=== PATIENT | female | born 1960 | race Hispanic/Latino ===

== ENCOUNTER 2022-04-06 15:53 | Inpatient (IN) | payer BC ==
[~2022-04-06] VITALS: Ht 157.5 cm; Wt 77.1 kg
[2022-04-06] MEDS ORDERED: GABA300S PO (20:02)
[2022-04-06] MEDS ORDERED: DOCU100C33 PO (20:02)
[2022-04-06] MEDS ORDERED: DULO60CA64 PO (20:02)
[2022-04-06 20:17] VITALS: BP 92/54
[2022-04-06] MEDS ORDERED: ACETAMINOPHEN 325 MG TAB PO PRN (20:30)
[2022-04-06] MEDS ORDERED: LACTULOSE 20 GM/30 ML UDCUP PO PRN (20:30)
[2022-04-06] MEDS ORDERED: ONDANSETRON 4MG INJ IV PRN (20:30)
[2022-04-06] MEDS: GABAPENTIN 300 MG CAPSULE PO SCH (21:00)
[2022-04-06] MEDS: DOCUSATE SODIUM 100 MG CAP PO SCH (21:00)
[2022-04-06] MEDS: DULOXETINE HCL 30 MG CAP PO SCH (21:00)
[2022-04-06] MEDS: ZOSYN 3.375GM+NS 50ML 50 ML IV SCH (22:54)
[2022-04-06] MEDS: FAMOTIDINE 20MG TAB PO SCH (22:54)
[2022-04-07] VITALS (7 sets, daily range): BP systolic 90–119; BP diastolic 47–66
[2022-04-07] MEDS: ZOSYN 3.375GM+NS 50ML 50 ML IV SCH ×3 (05:28→20:26)
[2022-04-07 05:33] LABS: BASOPHILS % (AUTO) 0.5 % (0.0-5.0); EOSINOPHILS % (AUTO) 4.8 % (0.0-8.0); HEMATOCRIT 27.3 % (36-48); LYMPHOCYTES % (AUTO) 7.6 % (21.0-51.0); MEAN CORPUSCULAR HEMOGLOBIN 29.2 pg (27.0-33.0); MEAN CORPUSCULAR HGB CONC 32.6 g/dL (32.0-36.0); MEAN CORPUSCULAR VOLUME 89.5 fL (79-99); MONOCYTES % (AUTO) 7.5 % (3.0-13.0); NEUTROPHILS % (AUTO) 71.1 % (40.0-77.0); PLATELET COUNT (AUTO) 220 K/uL (130-400); RED BLOOD CELL COUNT(AUTO) 3.05 MIL/uL (4.00-5.50); RED CELL DISTRIBUTION WIDTH 16.8 % (11.0-15.5); WHITE BLOOD COUNT (AUTO) 12.6 K/uL (4.8-10.8)
[2022-04-07 05:57] LABS: ALBUMIN 1.3 g/dL (3.5-5.0); CREATININE 1.5 mg/dL (0.5-1.5); POTASSIUM 3.4 mmol/L (3.5-5.1); TOTAL PROTEIN, SERUM 5.9 g/dL (6.0-8.3)
[2022-04-07] MEDS: DULOXETINE HCL 30 MG CAP PO SCH ×2 (08:43→20:26)
[2022-04-07] MEDS: DOCUSATE SODIUM 100 MG CAP PO SCH ×2 (08:43→20:26)
[2022-04-07] MEDS: FAMOTIDINE 20MG TAB PO SCH ×2 (08:43→20:26)
[2022-04-07] MEDS: GABAPENTIN 300 MG CAPSULE PO SCH ×3 (08:43→20:26)
[2022-04-07] MEDS ORDERED: VANCOMYCIN PROTOCOL PER PHARMACY IV SCH (11:00)
[2022-04-07] MEDS: 0.9%NACL 1000ML 1,000 ML IV SCH ×2 (13:29→21:40)
[2022-04-07] MEDS ORDERED: PHARMACY COMMUNICATION MISC SCH (14:00)
[2022-04-07] MEDS: ACETAMINOPHEN 325 MG TAB PO PRN (17:23)
[2022-04-07] MEDS: BALSAM PERU/CASTOR OIL 60 GM TUBE TP SCH (20:56)
[2022-04-08] MEDS: ACETAMINOPHEN 325 MG TAB PO PRN (03:18)
[2022-04-08 03:59] VITALS: BP 122/61
[2022-04-08] MEDS: ZOSYN 3.375GM+NS 50ML 50 ML IV SCH ×3 (04:26→20:47)
[2022-04-08] MEDS: 0.9%NACL 1000ML 1,000 ML IV SCH ×2 (04:36→17:14)
[2022-04-08 06:27] LABS: BASOPHILS % (AUTO) 0.5 % (0.0-5.0); EOSINOPHILS % (AUTO) 4.2 % (0.0-8.0); HEMATOCRIT 26.9 % (36-48); MEAN CORPUSCULAR HEMOGLOBIN 28.7 pg (27.0-33.0); MEAN CORPUSCULAR HGB CONC 32.3 g/dL (32.0-36.0); MEAN CORPUSCULAR VOLUME 88.8 fL (79-99); MONOCYTES % (AUTO) 8.2 % (3.0-13.0); NEUTROPHILS % (AUTO) 61.3 % (40.0-77.0); PLATELET COUNT (AUTO) 251 K/uL (130-400); RED BLOOD CELL COUNT(AUTO) 3.03 MIL/uL (4.00-5.50); RED CELL DISTRIBUTION WIDTH 16.9 % (11.0-15.5); WHITE BLOOD COUNT (AUTO) 10.8 K/uL (4.8-10.8)
[2022-04-08 06:34] LABS: CREATININE 1.1 mg/dL (0.5-1.5); POTASSIUM 3.2 mmol/L (3.5-5.1)
[2022-04-08 07:28] VITALS: BP 107/51
[2022-04-08] MEDS: DOCUSATE SODIUM 100 MG CAP PO SCH ×2 (08:58→20:47)
[2022-04-08] MEDS: FAMOTIDINE 20MG TAB PO SCH ×2 (08:58→20:47)
[2022-04-08] MEDS: DULOXETINE HCL 30 MG CAP PO SCH ×2 (08:59→20:47)
[2022-04-08] MEDS: GABAPENTIN 300 MG CAPSULE PO SCH ×3 (08:59→20:47)
[2022-04-08] MEDS: BALSAM PERU/CASTOR OIL 60 GM TUBE TP SCH ×3 (09:04→20:52)
[2022-04-08 12:00] VITALS: BP 114/62
[2022-04-08] MEDS ORDERED: VANCOMYCIN PROTOCOL PER PHARMACY IV SCH (12:30)
[2022-04-08] MEDS ORDERED: PHARMACY COMMUNICATION MISC SCH (15:00)
[2022-04-08 16:12] VITALS: BP 135/72
[2022-04-08 20:25] VITALS: BP 132/70
[2022-04-09] VITALS (7 sets, daily range): BP systolic 114–150; BP diastolic 59–76
[2022-04-09] MEDS: 0.9%NACL 1000ML 1,000 ML IV SCH ×3 (03:03→23:00)
[2022-04-09] MEDS: ZOSYN 3.375GM+NS 50ML 50 ML IV SCH ×3 (04:57→21:25)
[2022-04-09] MEDS: GABAPENTIN 300 MG CAPSULE PO SCH ×3 (09:24→21:24)
[2022-04-09] MEDS: FAMOTIDINE 20MG TAB PO SCH ×2 (09:25→21:24)
[2022-04-09] MEDS: DOCUSATE SODIUM 100 MG CAP PO SCH ×2 (09:25→21:24)
[2022-04-09] MEDS: DULOXETINE HCL 30 MG CAP PO SCH ×2 (09:25→21:25)
[2022-04-09] MEDS: BALSAM PERU/CASTOR OIL 60 GM TUBE TP SCH ×3 (09:26→21:38)
[2022-04-10 04:08] VITALS: BP 133/68
[2022-04-10 04:40] LABS: BASOPHILS % (AUTO) 0.5 % (0.0-5.0); EOSINOPHILS % (AUTO) 7.1 % (0.0-8.0); HEMATOCRIT 27.3 % (36-48); LYMPHOCYTES % (AUTO) 14.3 % (21.0-51.0); MEAN CORPUSCULAR HEMOGLOBIN 28.9 pg (27.0-33.0); MEAN CORPUSCULAR HGB CONC 31.9 g/dL (32.0-36.0); MEAN CORPUSCULAR VOLUME 90.7 fL (79-99); MONOCYTES % (AUTO) 6.8 % (3.0-13.0); NEUTROPHILS % (AUTO) 63.7 % (40.0-77.0); PLATELET COUNT (AUTO) 428 K/uL (130-400); RED BLOOD CELL COUNT(AUTO) 3.01 MIL/uL (4.00-5.50); RED CELL DISTRIBUTION WIDTH 17.2 % (11.0-15.5); WHITE BLOOD COUNT (AUTO) 8.6 K/uL (4.8-10.8)
[2022-04-10] MEDS: ZOSYN 3.375GM+NS 50ML 50 ML IV SCH ×3 (05:23→19:25)
[2022-04-10 05:25] LABS: CARBON DIOXIDE 28 mmol/L (21-32); CHLORIDE 110 mmol/L (101-111); GLOMERULAR FILTR. RATE CALC 60 mL/min (>60); GLUCOSE,RANDOM 84 mg/dL (70-105); POTASSIUM 3.4 mmol/L (3.5-5.1); SODIUM SERUM 145 mmol/L (136-145); THYROID STIMULATING HORMONE 2.56 uIU/mL (0.36-3.74); UREA NITROGEN, BLOOD 17 mg/dL (7-18)
[2022-04-10 06:51] LABS: ERYTHROCYTE SEDIMENTATION RATE 119 MM/HR (0-30)
[2022-04-10 07:20] VITALS: BP 135/62
[2022-04-10] MEDS: GABAPENTIN 300 MG CAPSULE PO SCH ×2 (09:13→13:31)
[2022-04-10] MEDS: DULOXETINE HCL 30 MG CAP PO SCH ×2 (09:13→19:26)
[2022-04-10] MEDS: DOCUSATE SODIUM 100 MG CAP PO SCH ×2 (09:13→19:26)
[2022-04-10] MEDS: FAMOTIDINE 20MG TAB PO SCH ×2 (09:13→19:26)
[2022-04-10] MEDS: 0.9%NACL 1000ML 1,000 ML IV SCH (09:16)
[2022-04-10] MEDS: BALSAM PERU/CASTOR OIL 60 GM TUBE TP SCH ×3 (09:18→19:31)
[2022-04-10 12:10] VITALS: BP 136/67
[2022-04-10] MEDS ORDERED: EPOETIN ALFA-EPBX (NON-ESRD) 10,000 UNIT/ML VIAL SQ SCH (15:00)
[2022-04-10] MEDS ORDERED: BISACODYL 5 MG TABLET.DR PO PRN (15:00)
[2022-04-10] MEDS: BISACODYL 5 MG TABLET.DR PO SCH ×2 (16:00→19:26)
[2022-04-10 16:10] VITALS: BP 130/68
[2022-04-10] MEDS ORDERED: POTASSIUM CHLORIDE 10% ELIXIR 20 MEQ/15 ML UDCUP PO PRN (17:00)
[2022-04-10] MEDS ORDERED: LIDOCAINE HCL-MPF 1% 2ML VIAL IV PRN (17:00)
[2022-04-10] MEDS ORDERED: POTASSIUM CHLORIDE 20MEQ/100ML 100 ML IV PRN (17:00)
[2022-04-10] MEDS ORDERED: KCL 20 MEQ ERTAB PO ONE (17:09)
[2022-04-10 20:00] VITALS: BP 119/47
[2022-04-10] MEDS: GABAPENTIN 100 MG CAPSULE PO SCH (20:32)
[2022-04-10 23:38] VITALS: BP 126/68
[2022-04-11 03:51] VITALS: BP 119/63
[2022-04-11] MEDS: ZOSYN 3.375GM+NS 50ML 50 ML IV SCH ×3 (05:07→20:08)
[2022-04-11 05:37] LABS: BASOPHILS % (AUTO) 0.4 % (0.0-5.0); EOSINOPHILS % (AUTO) 5.4 % (0.0-8.0); MEAN CORPUSCULAR HGB CONC 32.8 g/dL (32.0-36.0); MEAN CORPUSCULAR VOLUME 88.4 fL (79-99); MONOCYTES % (AUTO) 6.1 % (3.0-13.0); NEUTROPHILS % (AUTO) 64.4 % (40.0-77.0); PLATELET COUNT (AUTO) 538 K/uL (130-400); RED BLOOD CELL COUNT(AUTO) 3.28 MIL/uL (4.00-5.50); RED CELL DISTRIBUTION WIDTH 16.7 % (11.0-15.5); WHITE BLOOD COUNT (AUTO) 8.4 K/uL (4.8-10.8)
[2022-04-11 05:43] LABS: CREATININE 0.8 mg/dL (0.5-1.5); CRP QUANTITATIVE 42.8 mg/L (0.00-9.0); POTASSIUM 3.4 mmol/L (3.5-5.1)
[2022-04-11 07:01] LABS: ERYTHROCYTE SEDIMENTATION RATE 112 MM/HR (0-30)
[2022-04-11] MEDS: FAMOTIDINE 20MG TAB PO SCH ×2 (07:58→20:09)
[2022-04-11] MEDS: DULOXETINE HCL 30 MG CAP PO SCH ×2 (07:58→20:09)
[2022-04-11] MEDS: GABAPENTIN 100 MG CAPSULE PO SCH ×3 (07:58→20:09)
[2022-04-11] MEDS: BISACODYL 5 MG TABLET.DR PO SCH ×3 (07:58→20:09)
[2022-04-11] MEDS: DOCUSATE SODIUM 100 MG CAP PO SCH ×2 (07:58→20:02)
[2022-04-11 08:00] VITALS: BP 136/81
[2022-04-11] MEDS: BALSAM PERU/CASTOR OIL 60 GM TUBE TP SCH ×3 (08:00→20:09)
[2022-04-11 11:38] VITALS: BP 103/54
[2022-04-11] MEDS: KCL 20 MEQ ERTAB PO PRN ×2 (15:30→19:15)
[2022-04-11 16:00] VITALS: BP 102/31
[2022-04-11 20:09] VITALS: BP 118/62
[2022-04-12] VITALS: BP 116/59
[2022-04-12 04:00] VITALS: BP 122/72
[2022-04-12] MEDS: ZOSYN 3.375GM+NS 50ML 50 ML IV SCH ×3 (04:58→21:48)
[2022-04-12 08:12] LABS: HEMATOCRIT 31.5 % (36-48); MEAN CORPUSCULAR HGB CONC 32.1 g/dL (32.0-36.0); MEAN CORPUSCULAR VOLUME 90.5 fL (79-99); RED BLOOD CELL COUNT(AUTO) 3.48 MIL/uL (4.00-5.50); WHITE BLOOD COUNT (AUTO) 7.9 K/uL (4.8-10.8)
[2022-04-12 08:14] VITALS: BP 133/73
[2022-04-12 08:27] LABS: CREATININE 0.9 mg/dL (0.5-1.5); POTASSIUM 3.6 mmol/L (3.5-5.1)
[2022-04-12] MEDS: BALSAM PERU/CASTOR OIL 60 GM TUBE TP SCH ×3 (09:00→21:47)
[2022-04-12] MEDS: DOCUSATE SODIUM 100 MG CAP PO SCH ×2 (09:00→21:47)
[2022-04-12] MEDS: BISACODYL 5 MG TABLET.DR PO SCH ×3 (09:00→21:00)
[2022-04-12] MEDS: FAMOTIDINE 20MG TAB PO SCH ×2 (09:00→21:47)
[2022-04-12] MEDS: GABAPENTIN 100 MG CAPSULE PO SCH ×3 (09:00→21:47)
[2022-04-12] MEDS: DULOXETINE HCL 30 MG CAP PO SCH ×2 (09:00→21:47)
[2022-04-12 11:38] VITALS: BP 124/68
[2022-04-12 17:16] VITALS: BP 139/72
[2022-04-12] MEDS: KCL 20 MEQ ERTAB PO PRN (18:35)
[2022-04-12 19:00] VITALS: BP 123/58
[2022-04-13] VITALS (27 sets, daily range): BP systolic 93–143; BP diastolic 44–83
[2022-04-13] MEDS: KCL 20 MEQ ERTAB PO PRN ×3 (02:52→18:32)
[2022-04-13] MEDS: ZOSYN 3.375GM+NS 50ML 50 ML IV SCH ×3 (04:43→20:34)
[2022-04-13 05:25] LABS: HEMATOCRIT 29.2 % (36-48); MEAN CORPUSCULAR HGB CONC 32.2 g/dL (32.0-36.0); MEAN CORPUSCULAR VOLUME 90.1 fL (79-99); RED BLOOD CELL COUNT(AUTO) 3.24 MIL/uL (4.00-5.50); RED CELL DISTRIBUTION WIDTH 17.2 % (11.0-15.5); WHITE BLOOD COUNT (AUTO) 7.6 K/uL (4.8-10.8)
[2022-04-13 05:38] LABS: CREATININE 0.8 mg/dL (0.5-1.5); POTASSIUM 3.4 mmol/L (3.5-5.1)
[2022-04-13] MEDS: DOCUSATE SODIUM 100 MG CAP PO SCH ×2 (08:25→20:31)
[2022-04-13] MEDS: BISACODYL 5 MG TABLET.DR PO SCH ×3 (08:25→20:34)
[2022-04-13] MEDS: DULOXETINE HCL 30 MG CAP PO SCH ×2 (08:25→20:30)
[2022-04-13] MEDS: FAMOTIDINE 20MG TAB PO SCH ×2 (08:26→20:31)
[2022-04-13] MEDS: GABAPENTIN 100 MG CAPSULE PO SCH ×3 (08:26→20:33)
[2022-04-13] MEDS: BALSAM PERU/CASTOR OIL 60 GM TUBE TP SCH ×3 (09:12→20:34)
[2022-04-13] MEDS ORDERED: ROCURONIUM 10MG/1ML SYR 10 MG/ML ML ONE (10:36)
[2022-04-13] MEDS ORDERED: MIDAZOLAM HCL 1 MG/ML 2ML VIAL ONE (10:36)
[2022-04-13] MEDS ORDERED: FENTANYL CITRATE PF 50 MCG/1 ML 2ML VIAL ONE ×2 (10:36→11:57)
[2022-04-13] MEDS ORDERED: PROPOFOL 10 MG/ML 20ML VIAL IV ONE (10:36)
[2022-04-13] MEDS ORDERED: EPHEDRINE SULFATE 50 MG/ML AMPULE ONE (11:16)
[2022-04-13] MEDS ORDERED: ONDANSETRON 4MG INJ ONE (11:34)
[2022-04-13] MEDS ORDERED: HYDROCODONE/ACETAMINOPHEN 5/325 MG TAB PO PRN (14:00)
[2022-04-13] MEDS ORDERED: KETOROLAC 30MG VIAL (30MG/ML) IVP PRN (14:00)
[2022-04-14 04:00] VITALS: BP 109/63
[2022-04-14 05:02] LABS: BASOPHILS % (AUTO) 0.5 % (0.0-5.0); EOSINOPHILS % (AUTO) 6.6 % (0.0-8.0); HEMATOCRIT 28.7 % (36-48); LYMPHOCYTES % (AUTO) 16.2 % (21.0-51.0); MEAN CORPUSCULAR HEMOGLOBIN 28.8 pg (27.0-33.0); MEAN CORPUSCULAR VOLUME 92.9 fL (79-99); MONOCYTES % (AUTO) 7.6 % (3.0-13.0); NEUTROPHILS % (AUTO) 66.7 % (40.0-77.0); RED BLOOD CELL COUNT(AUTO) 3.09 MIL/uL (4.00-5.50); RED CELL DISTRIBUTION WIDTH 18.2 % (11.0-15.5)
[2022-04-14 05:06] LABS: PLATELET COUNT (AUTO) 794 K/uL (130-400)
[2022-04-14 05:34] LABS: CRP QUANTITATIVE 16.7 mg/L (0.00-9.0); POTASSIUM 3.9 mmol/L (3.5-5.1)
[2022-04-14] MEDS: ZOSYN 3.375GM+NS 50ML 50 ML IV SCH ×3 (05:54→22:15)
[2022-04-14 06:29] LABS: ERYTHROCYTE SEDIMENTATION RATE 97 MM/HR (0-30)
[2022-04-14 07:51] VITALS: BP 126/66
[2022-04-14] MEDS: BISACODYL 5 MG TABLET.DR PO SCH ×3 (09:00→21:00)
[2022-04-14] MEDS: DULOXETINE HCL 30 MG CAP PO SCH ×2 (09:44→22:15)
[2022-04-14] MEDS: BALSAM PERU/CASTOR OIL 60 GM TUBE TP SCH ×3 (09:45→22:17)
[2022-04-14] MEDS: FAMOTIDINE 20MG TAB PO SCH ×2 (09:45→22:15)
[2022-04-14] MEDS: GABAPENTIN 100 MG CAPSULE PO SCH ×3 (09:46→22:15)
[2022-04-14] MEDS: DOCUSATE SODIUM 100 MG CAP PO SCH ×2 (09:49→22:15)
[2022-04-14 11:00] VITALS: BP 112/66
[2022-04-14] MEDS ORDERED: ENOXAPARIN SODIUM 40 MG/0.4 ML SYRINGE SQ SCH (13:30)
[2022-04-14 15:51] VITALS: BP 108/52
[2022-04-14 20:33] VITALS: BP 115/65
[2022-04-15 00:35] VITALS: BP 110/55
[2022-04-15 04:39] VITALS: BP 125/62
[2022-04-15] MEDS: ZOSYN 3.375GM+NS 50ML 50 ML IV SCH ×3 (05:00→20:32)
[2022-04-15 05:03] LABS: BASOPHILS % (AUTO) 1.1 % (0.0-5.0); EOSINOPHILS % (AUTO) 12.2 % (0.0-8.0); HEMATOCRIT 30.9 % (36-48); LYMPHOCYTES % (AUTO) 22.1 % (21.0-51.0); MEAN CORPUSCULAR HEMOGLOBIN 29.4 pg (27.0-33.0); MEAN CORPUSCULAR HGB CONC 31.1 g/dL (32.0-36.0); MEAN CORPUSCULAR VOLUME 94.5 fL (79-99); MONOCYTES % (AUTO) 7.3 % (3.0-13.0); NEUTROPHILS % (AUTO) 55.9 % (40.0-77.0); RED BLOOD CELL COUNT(AUTO) 3.27 MIL/uL (4.00-5.50); RED CELL DISTRIBUTION WIDTH 18.9 % (11.0-15.5); WHITE BLOOD COUNT (AUTO) 6.6 K/uL (4.8-10.8)
[2022-04-15 05:06] LABS: PLATELET COUNT (AUTO) 823 K/uL (130-400)
[2022-04-15 05:21] LABS: CRP QUANTITATIVE 12.8 mg/L (0.00-9.0)
[2022-04-15 05:30] LABS: PLATELET MORPHOLOGY COMMENT MARKED INCREASE
[2022-04-15 06:27] LABS: ERYTHROCYTE SEDIMENTATION RATE 105 MM/HR (0-30)
[2022-04-15 07:30] VITALS: BP 133/77
[2022-04-15] MEDS: BISACODYL 5 MG TABLET.DR PO SCH ×3 (09:00→20:36)
[2022-04-15] MEDS: DOCUSATE SODIUM 100 MG CAP PO SCH ×2 (09:00→20:36)
[2022-04-15] MEDS: BALSAM PERU/CASTOR OIL 60 GM TUBE TP SCH ×3 (09:00→20:33)
[2022-04-15] MEDS: GABAPENTIN 100 MG CAPSULE PO SCH ×3 (11:08→20:32)
[2022-04-15] MEDS: FAMOTIDINE 20MG TAB PO SCH ×2 (11:08→20:32)
[2022-04-15] MEDS: DULOXETINE HCL 30 MG CAP PO SCH ×2 (11:10→20:32)
[2022-04-15] MEDS: ENOXAPARIN SODIUM 40 MG/0.4 ML SYRINGE SQ SCH (11:10)
[2022-04-15 12:00] VITALS: BP 107/66
[2022-04-15 16:00] VITALS: BP 122/69
[2022-04-15 20:00] VITALS: BP 104/48
[2022-04-16] VITALS: BP 118/67
[2022-04-16] MEDS: ZOSYN 3.375GM+NS 50ML 50 ML IV SCH ×3 (03:57→20:23)
[2022-04-16 04:00] VITALS: BP 112/65
[2022-04-16 05:30] LABS: BASOPHILS % (AUTO) 1.2 % (0.0-5.0); EOSINOPHILS % (AUTO) 9.4 % (0.0-8.0); LYMPHOCYTES % (AUTO) 22.9 % (21.0-51.0); MEAN CORPUSCULAR HEMOGLOBIN 29.2 pg (27.0-33.0); MEAN CORPUSCULAR HGB CONC 31.3 g/dL (32.0-36.0); MEAN CORPUSCULAR VOLUME 93.3 fL (79-99); NEUTROPHILS % (AUTO) 57.3 % (40.0-77.0); RED BLOOD CELL COUNT(AUTO) 3.43 MIL/uL (4.00-5.50); RED CELL DISTRIBUTION WIDTH 19.3 % (11.0-15.5); WHITE BLOOD COUNT (AUTO) 6.9 K/uL (4.8-10.8)
[2022-04-16 05:50] LABS: CREATININE 1.1 mg/dL (0.5-1.5); CRP QUANTITATIVE 11.5 mg/L (0.00-9.0); POTASSIUM 4.2 mmol/L (3.5-5.1)
[2022-04-16 05:53] LABS: PLATELET COUNT (AUTO) 903 K/uL (130-400)
[2022-04-16 08:00] VITALS: BP 130/74
[2022-04-16] MEDS: BISACODYL 5 MG TABLET.DR PO SCH ×3 (09:00→20:24)
[2022-04-16] MEDS: DOCUSATE SODIUM 100 MG CAP PO SCH ×2 (09:00→20:24)
[2022-04-16] MEDS: DULOXETINE HCL 30 MG CAP PO SCH ×2 (09:07→20:24)
[2022-04-16] MEDS: ENOXAPARIN SODIUM 40 MG/0.4 ML SYRINGE SQ SCH (09:08)
[2022-04-16] MEDS: FAMOTIDINE 20MG TAB PO SCH ×2 (09:08→20:23)
[2022-04-16] MEDS: GABAPENTIN 100 MG CAPSULE PO SCH ×3 (09:08→20:23)
[2022-04-16] MEDS: BALSAM PERU/CASTOR OIL 60 GM TUBE TP SCH ×3 (09:09→20:24)
[2022-04-16 12:49] VITALS: BP 114/62
[2022-04-16 16:43] VITALS: BP 111/67
[2022-04-16 20:00] VITALS: BP 114/62
[2022-04-17] VITALS: BP 115/59
[2022-04-17 04:00] VITALS: BP 116/58
[2022-04-17] MEDS: ZOSYN 3.375GM+NS 50ML 50 ML IV SCH ×3 (04:13→20:56)
[2022-04-17 05:45] LABS: EOSINOPHILS % (AUTO) 9.5 % (0.0-8.0); HEMATOCRIT 32.9 % (36-48); LYMPHOCYTES % (AUTO) 24.7 % (21.0-51.0); MEAN CORPUSCULAR HEMOGLOBIN 29.5 pg (27.0-33.0); MEAN CORPUSCULAR HGB CONC 31.3 g/dL (32.0-36.0); MEAN CORPUSCULAR VOLUME 94.3 fL (79-99); MONOCYTES % (AUTO) 6.9 % (3.0-13.0); NEUTROPHILS % (AUTO) 56.9 % (40.0-77.0); RED BLOOD CELL COUNT(AUTO) 3.49 MIL/uL (4.00-5.50); RED CELL DISTRIBUTION WIDTH 19.2 % (11.0-15.5); WHITE BLOOD COUNT (AUTO) 6.2 K/uL (4.8-10.8)
[2022-04-17 06:01] LABS: CREATININE 0.9 mg/dL (0.5-1.5)
[2022-04-17 06:34] LABS: PLATELET COUNT (AUTO) 933 K/uL (130-400)
[2022-04-17 07:15] VITALS: BP 115/66
[2022-04-17] MEDS: FAMOTIDINE 20MG TAB PO SCH ×2 (09:00→20:59)
[2022-04-17] MEDS: GABAPENTIN 100 MG CAPSULE PO SCH ×3 (09:00→21:00)
[2022-04-17] MEDS: BISACODYL 5 MG TABLET.DR PO SCH ×3 (09:00→21:00)
[2022-04-17] MEDS: DULOXETINE HCL 30 MG CAP PO SCH ×2 (09:00→20:59)
[2022-04-17] MEDS: BALSAM PERU/CASTOR OIL 60 GM TUBE TP SCH ×3 (09:00→21:01)
[2022-04-17] MEDS: DOCUSATE SODIUM 100 MG CAP PO SCH ×2 (09:00→20:59)
[2022-04-17] MEDS: ENOXAPARIN SODIUM 40 MG/0.4 ML SYRINGE SQ SCH (09:00)
[2022-04-17 11:08] VITALS: BP 114/71
[2022-04-17 16:12] VITALS: BP 109/66
[2022-04-17 20:00] VITALS: BP 122/60
[2022-04-18] VITALS (7 sets, daily range): BP systolic 105–140; BP diastolic 58–70
[2022-04-18] MEDS: ZOSYN 3.375GM+NS 50ML 50 ML IV SCH ×3 (04:27→20:39)
[2022-04-18 05:38] LABS: BASOPHILS % (AUTO) 1.7 % (0.0-5.0); EOSINOPHILS % (AUTO) 10.2 % (0.0-8.0); HEMATOCRIT 33.8 % (36-48); LYMPHOCYTES % (AUTO) 24.8 % (21.0-51.0); MEAN CORPUSCULAR HEMOGLOBIN 29.6 pg (27.0-33.0); MEAN CORPUSCULAR HGB CONC 31.1 g/dL (32.0-36.0); MEAN CORPUSCULAR VOLUME 95.2 fL (79-99); NEUTROPHILS % (AUTO) 52.5 % (40.0-77.0); RED BLOOD CELL COUNT(AUTO) 3.55 MIL/uL (4.00-5.50); RED CELL DISTRIBUTION WIDTH 19.7 % (11.0-15.5); WHITE BLOOD COUNT (AUTO) 5.3 K/uL (4.8-10.8)
[2022-04-18 05:54] LABS: PLATELET COUNT (AUTO) 898 K/uL (130-400)
[2022-04-18 06:11] LABS: CREATININE 0.9 mg/dL (0.5-1.5); POTASSIUM 3.9 mmol/L (3.5-5.1)
[2022-04-18] MEDS: FAMOTIDINE 20MG TAB PO SCH ×2 (09:35→20:40)
[2022-04-18] MEDS: DULOXETINE HCL 30 MG CAP PO SCH ×2 (09:35→20:40)
[2022-04-18] MEDS: ENOXAPARIN SODIUM 40 MG/0.4 ML SYRINGE SQ SCH (09:36)
[2022-04-18] MEDS: GABAPENTIN 100 MG CAPSULE PO SCH ×3 (09:36→20:47)
[2022-04-18] MEDS: BALSAM PERU/CASTOR OIL 60 GM TUBE TP SCH ×3 (09:37→20:56)
[2022-04-18] MEDS: DOCUSATE SODIUM 100 MG CAP PO SCH ×2 (09:43→20:40)
[2022-04-18] MEDS: BISACODYL 5 MG TABLET.DR PO SCH ×3 (09:43→20:40)
[2022-04-19] MEDS: ZOSYN 3.375GM+NS 50ML 50 ML IV SCH ×2 (04:21→13:19)
[2022-04-19 04:22] VITALS: BP 136/72
[2022-04-19 05:21] LABS: BASOPHILS % (AUTO) 2.1 % (0.0-5.0); HEMATOCRIT 33.8 % (36-48); LYMPHOCYTES % (AUTO) 22.7 % (21.0-51.0); MEAN CORPUSCULAR HEMOGLOBIN 29.6 pg (27.0-33.0); MEAN CORPUSCULAR HGB CONC 31.1 g/dL (32.0-36.0); MEAN CORPUSCULAR VOLUME 95.2 fL (79-99); MONOCYTES % (AUTO) 10.6 % (3.0-13.0); NEUTROPHILS % (AUTO) 49.2 % (40.0-77.0); RED BLOOD CELL COUNT(AUTO) 3.55 MIL/uL (4.00-5.50); RED CELL DISTRIBUTION WIDTH 18.8 % (11.0-15.5); WHITE BLOOD COUNT (AUTO) 4.8 K/uL (4.8-10.8)
[2022-04-19 05:31] LABS: PLATELET COUNT (AUTO) 810 K/uL (130-400)
[2022-04-19 05:35] LABS: CREATININE 1.1 mg/dL (0.5-1.5)
[2022-04-19 07:00] LABS: ERYTHROCYTE SEDIMENTATION RATE 106 MM/HR (0-30)
[2022-04-19 08:00] VITALS: BP 124/64
[2022-04-19] MEDS: GABAPENTIN 100 MG CAPSULE PO SCH ×2 (08:47→13:19)
[2022-04-19] MEDS: DULOXETINE HCL 30 MG CAP PO SCH (08:47)
[2022-04-19] MEDS: DOCUSATE SODIUM 100 MG CAP PO SCH (08:47)
[2022-04-19] MEDS: BISACODYL 5 MG TABLET.DR PO SCH ×2 (08:48→12:53)
[2022-04-19] MEDS: ENOXAPARIN SODIUM 40 MG/0.4 ML SYRINGE SQ SCH (08:48)
[2022-04-19] MEDS: FAMOTIDINE 20MG TAB PO SCH (08:48)
[2022-04-19 12:00] VITALS: BP 130/75
[2022-04-19] MEDS: BALSAM PERU/CASTOR OIL 60 GM TUBE TP SCH ×2 (13:21→14:58)
[2022-04-19 16:00] VITALS: BP 117/68
== END 2022-04-19 18:30 | disposition short-term general hospital (02) | DRG 871 ==
LOC: OBSVTOIN 18:58 → 3CH 18:58 → INTOOBSV 18:58 → 3BH 04-08 14:27 → 3CH 04-08 14:28
PROVIDERS: ADMIT Internal Medicine; ATTEND Internal Medicine
PROC: 0S993ZX Drainage of Right Hip Joint, Percutaneous Approach, Diagnostic (ICD-10-PCS; principal; 2022-04-17)
PROC: 0S9B3ZX Drainage of Left Hip Joint, Percutaneous Approach, Diagnostic (ICD-10-PCS; 2022-04-17)
DX: A41.51 Sepsis due to Escherichia coli [E. coli] (principal); L89.154 Pressure ulcer of sacral region, stage 4; R53.2 Functional quadriplegia; N39.0 Urinary tract infection, site not specified; M00.9 Pyogenic arthritis, unspecified; Z16.11 Resistance to penicillins; Z20.822 Contact with and (suspected) exposure to COVID-19; I95.9 Hypotension, unspecified; M43.16 Spondylolisthesis, lumbar region; D75.839 Thrombocytosis, unspecified; E11.22 Type 2 diabetes mellitus with diabetic chronic kidney disease; E66.01 Morbid (severe) obesity due to excess calories; N18.9 Chronic kidney disease, unspecified; L89.92 Pressure ulcer of unspecified site, stage 2; E78.00 Pure hypercholesterolemia, unspecified; I12.9 Hypertensive chronic kidney disease with stage 1 through stage 4 chronic kidney disease, or unspecified chronic kidney disease; Z86.73 Personal history of transient ischemic attack (TIA), and cerebral infarction without residual deficits; Z86.61 Personal history of infections of the central nervous system; Z82.5 Family history of asthma and other chronic lower respiratory diseases; Z82.3 Family history of stroke; Z82.0 Family history of epilepsy and other diseases of the nervous system; Z68.31 Body mass index [BMI] 31.0-31.9, adult
CPT/HCPCS: 36415; 72195; 73020; 73522; 73721; 80048; 80053; 82607; 82746; 83540; 83550; 83605; 84145; 84443; 85025; 85027; 85045; 85651; 86140; 87040; 87070; 87076; 87635; 97039; A4344; G0378; J1650; J2250; J2405; J2543; J2704; J3010; J3490

== ENCOUNTER 2023-02-01 09:10 | Observation (INO) | payer BC ==
[2023-01-26 11:16] LABS: CREATININE 0.8 mg/dL (0.5-1.5); POTASSIUM 3.8 mmol/L (3.5-5.1)
[2023-01-26 11:17] VITALS: BP 135/74; PULSE 71; RESP 17
[2023-01-26 11:25] LABS: BASOPHILS # (AUTO) 0.04 K/uL (0.00-0.20); BASOPHILS % (AUTO) 0.4 % (0.0-5.0); EOSINOPHILS # (AUTO) 0.17 K/uL (0.00-0.70); EOSINOPHILS % (AUTO) 1.9 % (0.0-8.0); HEMATOCRIT 35.7 % (36-48); IMMATURE GRANULOCYTE ABSOLUTE 0.04 K/uL (0-1); LYMPHOCYTES # (AUTO) 1.6 K/uL (1.0-4.8); LYMPHOCYTES % (AUTO) 16.9 % (21.0-51.0); MEAN CORPUSCULAR HEMOGLOBIN 25.2 pg (27.0-33.0); MEAN CORPUSCULAR HGB CONC 29.7 g/dL (32.0-36.0); MONOCYTES # (AUTO) 0.7 K/uL (0.1-1.0); MONOCYTES % (AUTO) 7.5 % (3.0-13.0); NEUTROPHILS # (AUTO) 6.7 K/uL (1.8-7.7); NEUTROPHILS % (AUTO) 72.9 % (40.0-77.0); PLATELET COUNT (AUTO) 675 K/uL (130-400); RED CELL DISTRIBUTION WIDTH 15.9 % (11.0-15.5); WHITE BLOOD COUNT (AUTO) 9.2 K/uL (4.8-10.8)
[2023-01-26 11:38] LABS: INR 0.93 (0.85-1.15); PROTHROMBIN TIME 10.5 SEC (9.6-11.6)
[2023-01-26 11:39] LABS: PARTIAL THROMBOPLASTIN TIME 27.6 SEC (26.3-35.5)
[2023-02-01] VITALS (28 sets, daily range): BP systolic 109–166; BP diastolic 58–84; PULSE 50–80; RESP 11–19; O2SAT 98
[~2023-02-01] VITALS: Ht 157.5 cm; Wt 92.3 kg
[~2023-02-01 09:10] MED LIST: ASCO1TAB PO; CALC-1038 PO; CRAN450T6 PO; DULO60CA64 PO; LORA10TA7 PO; MAGN400T40 PO; MULT-952 PO; PHARMACY COMMUNICATION MISC SCH; PUMP300C PO; TYLENOL ARTHRITIS PO
[2023-02-01] MEDS ORDERED: LACTATED RINGERS 1000ML 1,000 ML IV ONE (09:26)
[2023-02-01] MEDS ORDERED: CEFAZOLIN SODIUM 2 GM VIAL ONE (09:26)
[2023-02-01] MEDS ORDERED: MIDAZOLAM HCL 1 MG/ML 2ML VIAL ONE (12:05)
[2023-02-01] MEDS ORDERED: LIDOCAINE PF 100MG/5ML (2%) SYRINGE 5ML ONE (12:05)
[2023-02-01] MEDS ORDERED: PROPOFOL 10 MG/ML 20ML VIAL IV ONE (12:05)
[2023-02-01] MEDS ORDERED: FENTANYL CITRATE PF 50 MCG/1 ML 2ML VIAL ONE ×3 (12:06→15:29)
[2023-02-01] MEDS ORDERED: ROCURONIUM 10MG/1ML SYR 10 MG/ML ML ONE ×2 (12:06→13:37)
[2023-02-01] MEDS ORDERED: DEXAMETHASONE SOD PHOSPHATE 4 MG/ML 1ML VIAL ONE (12:09)
[2023-02-01] MEDS ORDERED: KETOROLAC 30MG VIAL (30MG/ML) ONE (12:10)
[2023-02-01] MEDS ORDERED: ONDANSETRON 4MG INJ ONE (12:10)
[2023-02-01] MEDS ORDERED: ROPIVACAINE 0.5% 5MG/ML 30ML IJ ONE (12:11)
[2023-02-01] MEDS ORDERED: TRANEXAMIC ACID 1000MG/10ML ONE (12:19)
[2023-02-01] MEDS ORDERED: KCL 20 MEQ ERTAB PO PRN (12:30)
[2023-02-01] MEDS ORDERED: MORPHINE 4 MG SYG IVP PRN (12:30)
[2023-02-01] MEDS ORDERED: HYDROCODONE/ACETAMINOPHEN 5/325 MG TAB PO PRN (12:30)
[2023-02-01] MEDS ORDERED: ONDANSETRON 4MG INJ IVP PRN (12:30)
[2023-02-01] MEDS ORDERED: FERROUS FUMARATE 324 MG TABLET PO PRN (12:30)
[2023-02-01] MEDS ORDERED: POTASSIUM CHLORIDE 10% ELIXIR 20 MEQ/15 ML UDCUP PO PRN (12:30)
[2023-02-01] MEDS ORDERED: POTASSIUM CHLORIDE 20MEQ/100ML 100 ML IV PRN (12:30)
[2023-02-01] MEDS ORDERED: GLYCOPYRROLATE 1 MG/5 ML SYRINGE ONE (15:12)
[2023-02-01] MEDS ORDERED: NEOSTIGMINE 5MG/5ML SYR IV ONE (15:12)
[2023-02-01] MEDS: IBUPROFEN 800MG + NS 250ML IV SCH ×2 (15:30→23:10)
[2023-02-01] MEDS ORDERED: LABETALOL 20MG VIAL IV ONE (16:01)
[2023-02-01] MEDS ORDERED: MEPERIDINE-PF 25 MG/ML SYG ONE ×3 (16:54→17:24)
[2023-02-01] MEDS ORDERED: CEFAZOLIN SODIUM 1 GM VIAL IVPB SCH (17:30)
[2023-02-01] MEDS: ACETAMINOPHEN 1,000 MG/100 ML VIAL IV SCH ×2 (17:41→18:30)
[2023-02-01] MEDS: 0.9%NACL 1000ML 1,000 ML IV SCH ×2 (19:13→22:03)
[2023-02-01] MEDS: TRAMADOL HCL 50 MG TABLET PO SCH ×2 (19:13→23:57)
[2023-02-01] MEDS: CEFAZOLIN SODIUM 2 GM VIAL IVPB SCH (20:15)
[2023-02-01] MEDS: FAMOTIDINE 20MG TAB PO SCH (20:15)
[2023-02-02] VITALS (8 sets, daily range): BP systolic 105–130; BP diastolic 47–63; PULSE 71–89; RESP 16–21; O2SAT 95
[2023-02-02] MEDS: ACETAMINOPHEN 1,000 MG/100 ML VIAL IV SCH (00:30)
[2023-02-02 04:04] LABS: HEMATOCRIT 26.3 % (36-48); MEAN CORPUSCULAR HEMOGLOBIN 25.5 pg (27.0-33.0); MEAN CORPUSCULAR HGB CONC 30.8 g/dL (32.0-36.0); MEAN CORPUSCULAR VOLUME 82.7 fL (79-99); RED BLOOD CELL COUNT(AUTO) 3.18 MIL/uL (4.00-5.50); RED CELL DISTRIBUTION WIDTH 15.7 % (11.0-15.5); WHITE BLOOD COUNT (AUTO) 12.2 K/uL (4.8-10.8)
[2023-02-02] MEDS: CEFAZOLIN SODIUM 2 GM VIAL IVPB SCH (04:04)
[2023-02-02 04:16] LABS: CREATININE 0.9 mg/dL (0.5-1.5); POTASSIUM 4.5 mmol/L (3.5-5.1)
[2023-02-02] MEDS: IBUPROFEN 800MG + NS 250ML IV SCH (06:28)
[2023-02-02] MEDS: TRAMADOL HCL 50 MG TABLET PO SCH ×4 (06:28→23:21)
[2023-02-02] MEDS: POLYETHYLENE GLYCOL 3350 17 GM POWD.PACK PO SCH (07:42)
[2023-02-02] MEDS: DULOXETINE HCL 30 MG CAP PO SCH (07:43)
[2023-02-02] MEDS: FAMOTIDINE 20MG TAB PO SCH ×2 (07:43→19:19)
[2023-02-02] MEDS: HYDROCODONE/ACETAMINOPHEN 10/325 MG TAB PO PRN (07:44)
[2023-02-02] MEDS: 0.9%NACL 1000ML 1,000 ML IV SCH (07:46)
[2023-02-02] MEDS: ENOXAPARIN SODIUM 30 MG/0.3 ML SQ SCH (07:47)
[2023-02-02] MEDS ORDERED: NON-FORMULARY MEDICATION 1 EACH (Duloxetine HCl 60 MG) PO SCH (09:00)
[2023-02-03] MEDS: HYDROCODONE/ACETAMINOPHEN 10/325 MG TAB PO PRN ×2 (00:48→08:34)
[2023-02-03 03:46] VITALS: BP 101/50; PULSE 82; RESP 16
[2023-02-03] MEDS: TRAMADOL HCL 50 MG TABLET PO SCH ×2 (06:18→12:32)
[2023-02-03 08:00] VITALS: BP 104/32; PULSE 95; RESP 18; O2SAT 94
[2023-02-03] MEDS: DULOXETINE HCL 30 MG CAP PO SCH (08:31)
[2023-02-03] MEDS: POLYETHYLENE GLYCOL 3350 17 GM POWD.PACK PO SCH (08:31)
[2023-02-03] MEDS: FAMOTIDINE 20MG TAB PO SCH (08:32)
[2023-02-03] MEDS: ENOXAPARIN SODIUM 30 MG/0.3 ML SQ SCH (08:32)
[2023-02-03 12:00] VITALS: BP 112/61; PULSE 92; RESP 21
[2023-02-04] MEDS ORDERED: BISACODYL 10 MG SUPP.RECT RC PRN (12:30)
== END 2023-02-03 15:10 | disposition home or self-care (01) ==
LOC: DAH 09:10 → DAHIP 09:11 → DAH 09:11 → 4AH 18:20
PROVIDERS: ADMIT Orthopaedic Surgery; ATTEND Orthopaedic Surgery
DX: M16.12 Unilateral primary osteoarthritis, left hip (principal); D62 Acute posthemorrhagic anemia; E66.9 Obesity, unspecified; Z68.37 Body mass index [BMI] 37.0-37.9, adult; Z79.82 Long term (current) use of aspirin
CPT/HCPCS: 80048 ×2; 85025; 85610; 85730; 36415 ×2; 87641; 27130; 96365; 96367; 64450; 73503; 72170; 96372 ×2; 96366; 96375; 85027; 97161; 97116 ×4; 97530; A6260; C1776 ×5; G0378 ×43; A4663; A4606; J7120; J3010 ×3; J3490 ×3; J2710; J2001; J2250; J2704; J2405 ×2; J1885; J1100; J2175 ×3; J2795; J0690 ×3; A4649 ×4; G0168; A6212; A4215; A4223; A4222; A4221; J1650 ×2; J1741 ×2